=== PATIENT | female | born 1975 | race Hispanic/Latino ===

== ENCOUNTER 2019-08-12 09:56 | Emergency (ER) | payer SELFPAY ==
[2019-08-12 14:03] LABS: #Eosinphils 0.1 thou/uL (0.0-0.7); #Lymphocytes 1.7 thou/uL (1.20-3.40); #Monocytes 0.3 thou/uL (0.11-0.59); #Neutrophils 3.9 thou/uL (1.40-6.50); %Basophils 0.2 % (0.0-1.0); %Eosinophils 1.3 % (0.0-10.0); %Lymphocytes 29.1 % (21.0-51.0); %Monocytes 4.6 % (0.0-10.0); %Neutrophils 64.8 % (42.0-75.0); Hemoglobin 14.2 g/dL (12.0-16.0); Mean Corpuscular HGB CONC 34.3 g/dL (32.0-36.0); Mean Corpuscular Hemoglobin 30.7 pg (27.0-31.0); Mean Corpuscular Volume 89.6 fL (78.0-98.0); Mean Platelet Volume 8.7 fL (7.4-10.4); Platelet Count 270 thou/uL (130-400); RBC Distribution Width 11.9 % (11.5-14.5); Red Blood Cell (RBC) Count 4.63 mill/uL (4.20-5.40); White Blood Cell (WBC) Count 5.9 thou/uL (4.8-10.8)
[2019-08-12 14:24] LABS: ALT (SGPT) 20 U/L (8-55); AST (SGOT) 19 U/L (5-34); Albumin 4.5 g/dL (3.5-5.0); Alkaline Phosphatase 68 U/L (40-110); Anion Gap 13 mmol/L (10-20); BUN (Urea Nitrogen) 5 mg/dL (7.0-18.7); Bilirubin, Total 0.3 mg/dL (0.2-1.2); Calc. Creatinine Clearance 0 mL/min (70-130); Calcium 9.4 mg/dL (7.8-10.44); Carbon Dioxide 23 mmol/L (22-29); Chloride 105 mmol/L (98-107); Estimated GFR-MDRD Greater than 90; Globulin 2.7 g/dL (2.4-3.5); Glucose 105 mg/dL (70-105); Potassium 3.8 mmol/L (3.5-5.1); Protein, Total 7.2 g/dL (6.0-8.3); Sodium 137 mmol/L (136-145)
--- NOTE | 2019-08-12 17:03 | ULT ---
PELVIC ULTRASOUND: Date: 08/12/19 COMPARISON: None. HISTORY: The uterus measures approximately 9.9 x 5.6 x 6.2 cm. There is an oblong hypoechoic area in the regio n of the endometrial stripe along the superior posterior aspect of the uterine body/fundus measuring approximately 1.3 x 1.1 x 1.2 cm. This does not appear to contain a yolk sac or a pole and is t hus of uncertain etiology. This could represent an empty gestational sac or a pseudogestational sac o n the basis of sonographically occult ectopic . The left ovary can only be visualized on transabdominal imaging. Secondary to location of the left ov annel and body habitus, blood flow cannot be documented within the left ovary. Left ovary measures 2.8 x 1.4 x 2.5 cm. Right ovary measures 2.4 x 3.0 x 1.8 cm and demonstrates normal blood flow without ev idence for mass. Trace free fluid noted in the pelvic cul-de-sac. There are a few small nabothian cysts noted. IMPRESSION: [place] hypoechoic area in the region of the endometrial stripe which could represent a gestational sa c on the basis of normal early or spontaneous . Alternative consideration would be a pseudogestational sac in the setting of sonographically occult ectopic . Recommend follow- up quantitative beta HCG in 48 hours, as well as follow-up pelvic ultrasound in 48 hours. POS: [facility]
== END 2019-08-12 16:22 | disposition home or self-care (01) ==
LOC: ERS 09:56
DX: O20.9 Hemorrhage in early pregnancy, unspecified (principal); Z3A.11 11 weeks gestation of pregnancy
CPT/HCPCS: 36415; 76856; 80053; 84702; 85025; 86900; 86901

== ENCOUNTER 2019-08-14 07:37 | Emergency (ER) | payer SELFPAY ==
--- NOTE | 2019-08-14 09:10 | ULT ---
ULTRASOUND PELVIC TRANSVAGINAL WITH DOPPLER: Date: 08/14/19 HISTORY: . COMPARISON: Ultrasound dated 08/12/19. FINDINGS: Real-time White scale with color Doppler and spectral analysis of the pelvis was performed via transab dominal and transvaginal approach. Adequate vascular flow to both ovaries. No significant free fluid. There is a right ovarian corpus luteal cyst. There is an abnormally shaped, oblong gestational sac in the uterine cavity, with a yolk sac without a visualized pole appreciated. Mean gestational sac diameter is 1.06 cm. Yolk sac dimension is 0.55 cm. IMPRESSION: No significant change in imaging appearance of the pelvis. No pole is visualized. The findings are not diagnostic of failure. Close follow-up HCG and ultrasound in 5 days recommended. POS: [facility]
[2019-08-14] MEDS ORDERED: Misoprostol 200 MCG TAB PO SCH (09:30)
[2019-08-14] MEDS ORDERED: Ibuprofen 200 MG TAB ONE (09:35)
== END 2019-08-14 09:44 | disposition home or self-care (01) ==
LOC: ERS 07:37
DX: O20.0 Threatened abortion (principal); O99.281 Endocrine, nutritional and metabolic diseases complicating pregnancy, first trimester; E03.9 Hypothyroidism, unspecified; F32.9 Major depressive disorder, single episode, unspecified; O99.341 Other mental disorders complicating pregnancy, first trimester; Z3A.01 Less than 8 weeks gestation of pregnancy
CPT/HCPCS: 36415; 76856; 84702

== ENCOUNTER 2019-09-09 07:51 | Emergency (ER) | payer SELFPAY ==
[2019-09-09] MEDS ORDERED: Metoclopramide HCl 10 MG/2 ML VIAL ONE (08:20)
[2019-09-09] MEDS ORDERED: diphenhydrAMINE 50 MG/ML VIAL ONE (08:20)
[2019-09-09] MEDS ORDERED: Ketorolac Tromethamine 30 MG/ML VIAL ONE (08:20)
[2019-09-09 08:51] LABS: #Eosinphils 0.1 thou/uL (0.0-0.7); #Lymphocytes 2.1 thou/uL (1.20-3.40); #Monocytes 0.4 thou/uL (0.11-0.59); #Neutrophils 6.2 thou/uL (1.40-6.50); %Eosinophils 1.6 % (0.0-10.0); %Lymphocytes 23.7 % (21.0-51.0); %Monocytes 4.5 % (0.0-10.0); %Neutrophils 70.3 % (42.0-75.0); Hemoglobin 14.6 g/dL (12.0-16.0); Mean Corpuscular HGB CONC 33.8 g/dL (32.0-36.0); Mean Corpuscular Hemoglobin 29.7 pg (27.0-31.0); Mean Corpuscular Volume 87.9 fL (78.0-98.0); Mean Platelet Volume 8.2 fL (7.4-10.4); Platelet Count 255 thou/uL (130-400); RBC Distribution Width 11.8 % (11.5-14.5); Red Blood Cell (RBC) Count 4.91 mill/uL (4.20-5.40); White Blood Cell (WBC) Count 8.8 thou/uL (4.8-10.8)
[2019-09-09 09:04] LABS: BHCG - Serum Negative (NEGATIVE); Pregs Control Background? CLEAR/WHITE (CLR/WHITE); Pregs Control Bar Appear? YES (CONTROL BAR)
[2019-09-09 09:06] LABS: ALT (SGPT) 9 U/L (8-55); AST (SGOT) 15 U/L (5-34); Albumin 4.7 g/dL (3.5-5.0); Alkaline Phosphatase 78 U/L (40-110); Anion Gap 12 mmol/L (10-20); BUN (Urea Nitrogen) 8 mg/dL (7.0-18.7); Bilirubin, Total 0.5 mg/dL (0.2-1.2); Calc. Creatinine Clearance 0 mL/min (70-130); Calcium 9.4 mg/dL (7.8-10.44); Carbon Dioxide 27 mmol/L (22-29); Chloride 103 mmol/L (98-107); Estimated GFR-MDRD Greater than 90; Globulin 3.1 g/dL (2.4-3.5); Glucose 126 mg/dL (70-105); Potassium 3.6 mmol/L (3.5-5.1); Protein, Total 7.8 g/dL (6.0-8.3); Sodium 138 mmol/L (136-145)
--- NOTE | 2019-09-09 09:25 | RAD ---
RADIOGRAPH CHEST 1 VIEW: DATE: 09/09/2019 HISTORY: 43-year-old female with chest pain FINDINGS: There are no airspace densities, pulmonary edema, pneumothorax, or cardiomegaly. The lateral costophr enic angles are sharp. IMPRESSION: No acute cardiopulmonary findings.
== END 2019-09-09 10:22 | disposition home or self-care (01) ==
LOC: ERS 07:51
DX: R51 Headache (principal); R20.2 Paresthesia of skin; M54.2 Cervicalgia
CPT/HCPCS: 71045; 80053; 84484; 84703; 85025; 93005; 96361; 96365; 96375; J1200; J1885; J2765

== ENCOUNTER 2020-05-07 08:44 | Emergency (ER) | payer SELFPAY ==
--- NOTE | 2020-05-07 10:20 | CT ---
Exam: Head CT without contrast HISTORY: Fall. Hit head on metal bar of a freezer. Loss of consciousness. COMPARISON: none FINDINGS: Hemorrhage: No intraparenchymal hemorrhage or extra-axial hematoma. Brain parenchyma: Cortical riley-white matter differentiation is preserved. No mass effect or midline shift. Basilar cisterns are patent. Ventricular system: Ventricles and sulci are patent and symmetric. Calvarium: Intact. Sinuses and mastoid air cells: Adequate aeration. IMPRESSION: No intracranial posttraumatic sequelae
== END 2020-05-07 11:57 | disposition home or self-care (01) ==
LOC: ERS 08:44
DX: S06.9X1A Unspecified intracranial injury with loss of consciousness of 30 minutes or less, initial encounter (principal); E03.9 Hypothyroidism, unspecified; F32.9 Major depressive disorder, single episode, unspecified; F41.9 Anxiety disorder, unspecified; W01.10XA Fall on same level from slipping, tripping and stumbling with subsequent striking against unspecified object, initial encounter; Y92.511 Restaurant or cafe as the place of occurrence of the external cause
CPT/HCPCS: 70450

== ENCOUNTER 2021-04-09 23:28 | Emergency (ER) | payer SELFPAY ==
[2021-04-10] MEDS ORDERED: predniSONE 20 MG TAB ONE (00:46)
== END 2021-04-10 00:52 | disposition home or self-care (01) ==
LOC: ERS 23:28
DX: L25.9 Unspecified contact dermatitis, unspecified cause (principal); E03.9 Hypothyroidism, unspecified
CPT/HCPCS: 99282; J7512

== ENCOUNTER 2024-04-22 16:18 | Emergency (ER) | payer SELFPAY ==
[2024-04-22] MEDS ORDERED: Ketorolac Tromethamine 30 MG (1 mL) VIAL ONE (20:31)
[2024-04-22] MEDS ORDERED: Metoclopramide HCl 10 MG TAB ONE (20:35)
[2024-04-22 20:45] LABS: #Basophils Less than 0.03 10x3/uL (0.0-0.2); %Basophils 0.5 % (0.0-1.0); %Eosinophils 3.1 % (0.0-10.0); %Lymphocytes 30.5 % (21.0-51.0); %Monocytes 6.1 % (0.0-10.0); %Neutrophils 59.3 % (42.0-75.0); Hematocrit 38.8 % (36.0-47.0); Hemoglobin 13.5 g/dL (12.0-16.0); Mean Corpuscular HGB CONC 34.8 g/dL (32.0-36.0); Mean Corpuscular Hemoglobin 29.4 pg (27.0-31.0); Mean Corpuscular Volume 84.5 fL (78.0-98.0); Mean Platelet Volume 9.5 fL (7.4-10.4); Platelet Count 373 10x3/uL (130-400); RBC Distribution Width 12.4 % (11.5-14.5); Red Blood Cell (RBC) Count 4.59 mill/uL (4.20-5.40)
[2024-04-22 21:02] LABS: BHCG - Serum Negative (NEGATIVE); Pregs Control Background? CLEAR/WHITE (CLR/WHITE); Pregs Control Bar Appear? YES (CONTROL BAR)
[2024-04-22 21:08] LABS: CRP,High Sensitivity (Inhouse) 0.93 mg/dL (< or = 0.5)
[2024-04-22 21:09] LABS: ALT (SGPT) 70 U/L (8-55); AST (SGOT) 51 U/L (5-34); Albumin 4.4 g/dL (3.5-5.0); Alkaline Phosphatase 90 U/L (40-110); Anion Gap 17 mmol/L (10-20); BUN (Urea Nitrogen) 9 mg/dL (7.0-18.7); Bilirubin, Total 0.4 mg/dL (0.2-1.2); Calc. Creatinine Clearance 0 mL/min (70-130); Calcium 9.7 mg/dL (7.8-10.44); Carbon Dioxide 21 mmol/L (22-29); Chloride 107 mmol/L (98-107); Estimated GFR 107; Globulin 3.7 g/dL (2.4-3.5); Glucose 120 mg/dL (70-105); Potassium 3.7 mmol/L (3.5-5.1); Protein, Total 8.1 g/dL (6.0-8.3); Sodium 141 mmol/L (136-145)
== END 2024-04-22 22:04 | disposition home or self-care (01) ==
LOC: ERS 16:18
DX: M25.50 Pain in unspecified joint (principal); L29.9 Pruritus, unspecified; R21 Rash and other nonspecific skin eruption
CPT/HCPCS: 36415; 70450; 80053; 84703; 85025; 86141; 96372; J1885

== ENCOUNTER 2025-08-19 12:44 | Emergency (ER) | payer SELFPAY ==
[2025-08-19] MEDS ORDERED: Ondansetron PF 4 MG/2 ML Vial ONE ×2 (13:43→15:14)
[2025-08-19] MEDS ORDERED: Ketorolac Tromethamine 30 MG (1 mL) VIAL ONE (13:43)
[2025-08-19 13:54] LABS: #Basophils Less than 0.03 10x3/uL (0.0-0.2); #Eosinophils Less than 0.03 10x3/uL (0.0-0.7); #Monocytes 0.21 10x3/uL (0.11-0.59); #Neutrophils 3.54 10x3/uL (1.40-6.50); %Basophils 0.2 % (0.0-1.0); %Eosinophils 0.0 % (0.0-10.0); %Lymphocytes 20.6 % (21.0-51.0); %Monocytes 4.4 % (0.0-10.0); %Neutrophils 74.4 % (42.0-75.0); Hematocrit 42.6 % (36.0-47.0); Hemoglobin 14.4 g/dL (12.0-16.0); Mean Corpuscular Hemoglobin 28.4 pg (27.0-31.0); Mean Corpuscular Volume 84.0 fL (78.0-98.0); Platelet Count 225 10x3/uL (130-400); Red Blood Cell (RBC) Count 5.07 mill/uL (4.20-5.40); White Blood Cell (WBC) Count 4.76 10x3/uL (4.8-10.8)
[2025-08-19 15:11] LABS: ALT (SGPT) 36 U/L (Less than 34); AST (SGOT) 79 U/L (11-34); Albumin 4.0 g/dL (3.1-4.5); Alkaline Phosphatase 79 U/L (40-110); Anion Gap 14 mmol/L (10-20); BUN (Urea Nitrogen) 13 mg/dL (7.0-18.7); Bilirubin, Total 0.9 mg/dL (0.3-1.2); Calc. Creatinine Clearance 0 mL/min (70-130); Calcium 9.5 mg/dL (7.8-10.44); Carbon Dioxide 24 mmol/L (22-29); Chloride 101 mmol/L (98-107); Globulin 4.1 g/dL (2.4-3.5); Glucose 100 mg/dL (70-105); Potassium 4.0 mmol/L (3.5-5.1); Sodium 135 mmol/L (136-145)
== END 2025-08-19 16:39 | disposition home or self-care (01) ==
LOC: ERS 12:44
DX: B34.9 Viral infection, unspecified (principal)
CPT/HCPCS: 71045; 80053; 83880; 84484; 85025; 87428; 93005; 96361; 96374; 96375; 96376; J1885; J2405